=== PATIENT | male | born 1985 | race Caucasian/White ===

== ENCOUNTER 2017-07-27 17:42 | Observation (INO) | payer OTHER ==
[~2017-07-27] VITALS: Ht 170.2 cm; Wt 93.0 kg
[2017-07-27 17:44] VITALS: BP 157/105; PULSE 92; RESP 18; TEMP 98.2; O2SAT 100
[2017-07-27] MEDS ORDERED: ONE-TAB PO (18:12)
[2017-07-27] MEDS ORDERED: SODIUM CHLOR 0.9% 1000 ML INJ 1,000 ML IV ONE (18:15)
[2017-07-27] MEDS ORDERED: KETOROLAC TROMETHAMINE 30 MG/ML (IVP) VIAL IV PUSH ONE (18:15)
--- NOTE | 2017-07-27 18:58 | RADRPT ---
EXAM DATE: 07/27/2017 6:55 PM EDT AGE/SEX: 31 years / Male INDICATIONS: General weakness. CLINICAL DATA: This is the patient's initial encounter. Patient reports that signs and symptoms have been present for 1 day and indicates a pain score of 0/10. MEDICAL/SURGICAL HISTORY: None. None. RADIATION DOSE: 50.69 CTDI (mGy) COMPARISON: No prior [place] exams available for comparison. TECHNIQUE: CT of the head without contrast. Using automated exposure control and adjustment of the mA and/or kV according to patient size, radiation dose was kept as low as reasonably achievable to ob tain optimal diagnostic quality images. FINDINGS: Cerebrum: The ventricles are normal for age. No evidence of midline shift, mass lesion, hemorrhage or acute infarction. No extraaxial fluid collections are seen. Posterior Fossa: The cerebellum and brainstem are intact. The 4th ventricle is midline. The cerebe llopontine angle is unremarkable. Extracranial: The visualized portion of the orbits is intact. Skull: The calvaria is intact. No evidence of skull fracture. CONCLUSION: 1. Negative CT Head non contrast. 2. No evidence of acute infarct, hemorrhage, mass or edema. Electronically signed by: Bry Matthew MD 07/27/2017 6:57 PM EDT
--- NOTE | 2017-07-27 19:03 | PD ---
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 He says that he felt ill about a week ago with some nausea and fatigue. He did not vomit. He did not have any fevers, but felt warm. He says about 4 days ago, he started to have a lot of muscle pains. He says he feels like he has been working out at the gym, but he has not been. 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 He denies numbness or tingling. He has never had this before. Severity is mild to moderate. [facility] Past Medical History Asthma: Yes Social History Alcohol Use: Yes Tobacco Use: No Substance Use: No Allergies-Medications (Allergen,Severity, Reaction): Coded Allergies: No Known Allergies (Unverified , 07/27/17) Reported Meds & Prescriptions Reported Meds & Active Scripts Active Reported One-A-Day Essential (Multivitamin) 1 Each Tablet 1 Tab PO DAILY Review of Systems Except as stated in HPI: all other systems reviewed are Neg General / Constitutional: No: Fever, Chills HENT: No: Headaches, Lightheadedness Cardiovascular: No: Chest Pain or Discomfort Respiratory: No: Shortness of Breath Gastrointestinal: No: Nausea, Vomiting Musculoskeletal: Positive: Myalgias Skin: No Rash, No Change in Pigmentation Neurologic: Positive: Weakness Physical Exam Narrative GENERAL: Awake and alert, no acute distress. SKIN: Focused skin assessment warm/dry. No wounds or signs of infection. HEAD: Atraumatic. Normocephalic. EYES: Pupils equal and round. No scleral icterus. Extra ocular movements intact. ENT: Mucous membranes pink and moist. NECK: Trachea midline. No JVD. CARDIOVASCULAR: Regular rate and rhythm. No murmur appreciated. RESPIRATORY: No accessory muscle use. Clear to auscultation. Breath sounds equal bilaterally. GASTROINTESTINAL: Abdomen soft, non-tender, nondistended. MUSCULOSKELETAL: No obvious deformities. No clubbing. No cyanosis. No edema. NEUROLOGICAL: Awake and alert. No obvious cranial nerve deficits. Decreased electrical appliance repairer strength bilaterally. Normal strength bilaterally in the lower extremities. Normal speech. Pulses intact. PSYCHIATRIC: Appropriate mood and affect; insight and judgment normal. Data Data Last Documented VS Vital Signs Date Time Temp Pulse Resp B/P (MAP) Pulse Ox O2 Delivery O2 Flow Rate FiO2 07/27/17 19:48 20 07/27/17 19:26 70 135/81 (99) 98 Room Air 07/27/17 17:44 98.2 Orders Orders Iv Access Insert/Monitor (07/27/17 18:04) Complete Blood Count With Diff (07/27/17 18:04) Comprehensive Metabolic Panel (07/27/17 18:04) Troponin I (07/27/17 18:04) Creatine Kinase (Cpk) (07/27/17 18:04) Electrocardiogram (07/27/17 ) Westergren Sedimentation Rate (07/27/17 18:04) Urinalysis - C+S If Indicated (07/27/17 18:04) Ct Brain W/O Iv Contrast(Rout) (07/27/17 ) Ct Cerv Spine W/O Contrast (07/27/17 ) Sodium Chlor 0.9% 1000 Ml Inj (Ns 1000 M (07/27/17 18:15) Ketorolac Inj (Toradol Inj) (07/27/17 18:15) Mri Brain W&W/O Contrast (07/27/17 ) Mri C Spine W&W/O Contrast (07/27/17 ) Mri T Spine W & W/O Contrast (07/27/17 ) Mri L Spine W&W/O Contrast (07/27/17 ) Thyroid Stimulating Hormone (07/27/17 20:42) Vitamin B12 (07/27/17 20:42) Act Partial Throm Time (Ptt) (07/27/17 20:42) Prothrombin Time / Inr (Pt) (07/27/17 20:42) Chest, Single Ap (07/27/17 ) Thyroxine (T4) (07/27/17 20:42) Place In Observation (07/27/17 ) Vital Signs (Adult) Q4H (07/27/17 21:13) Activity Oob With Assistance (07/27/17 21:13) Sodium Chlor 0.9% 1000 Ml Inj (Ns 1000 M (07/27/17 22:00) Sodium Chloride 0.9% Flush (Ns Flush) (07/27/17 21:15) Sodium Chloride 0.9% Flush (Ns Flush) (07/28/17 09:00) Comprehensive Metabolic Panel (07/28/17 06:00) Complete Blood Count With Diff (07/28/17 06:00) Pt Request For Service (07/27/17 21:13) Ot Request For Service (07/27/17 21:13) Scd Bilateral/Knee High SUKI.BID (07/27/17 21:13) Santana Bilateral/Knee High SUKI.QSHIFT (07/27/17 21:13) Acetaminophen (Tylenol) (07/27/17 21:15) Docusate Sodium-Senna (Emily-Colace) (07/28/17 09:00) Magnesium Hydroxide Liq (Milk Of Magnesi (07/27/17 21:15) Sennosides (Senokot) (07/27/17 21:15) Bisacodyl Supp (Dulcolax Supp) (07/27/17 21:15) Lactulose Liq (Lactulose Liq) (07/27/17 21:15) Consult Neurology (07/27/17 ) Sodium Chlor 0.9% 1000 Ml Inj (Ns 1000 M (07/27/17 21:30) Physician Name Changes (07/27/17 ) Admit Order (Ed Use Only) (07/27/17 ) Multimedia Artist / Telemetry SUKI.Q8H (07/27/17 21:47) Diet Heart Healthy (07/28/17 Breakfast) Activity Oob With Assistance (07/27/17 21:47) Notify Dr: Other (07/27/17 21:47) C-Reactive Protein (Crp) (07/28/17 06:00) Magnesium (Mg) (07/28/17 06:00) Labs Laboratory Tests Test 07/27/17 18:42 07/27/17 18:55 07/27/17 21:04 White Blood Count 7.7 TH/MM3 Red Blood Count 4.98 MIL/MM3 Hemoglobin 14.4 GM/DL Hematocrit 40.7 % Mean Corpuscular Volume 81.7 FL Mean Corpuscular Hemoglobin 28.9 PG Mean Corpuscular Hemoglobin Concent 35.3 % Red Cell Distribution Width 12.9 % Platelet Count 318 TH/MM3 Mean Platelet Volume 6.8 FL Neutrophils (%) (Auto) 64.3 % Lymphocytes (%) (Auto) 23.9 % Monocytes (%) (Auto) 7.6 % Eosinophils (%) (Auto) 3.7 % Basophils (%) (Auto) 0.5 % Neutrophils # (Auto) 4.9 TH/MM3 Lymphocytes # (Auto) 1.8 TH/MM3 Monocytes # (Auto) 0.6 TH/MM3 Eosinophils # (Auto) 0.3 TH/MM3 Basophils # (Auto) 0.0 TH/MM3 CBC Comment DIFF FINAL Differential Comment Erythrocyte Sedimentation Rate 31 mm/hr Blood Urea Nitrogen 24 MG/DL Creatinine 1.13 MG/DL Random Glucose 78 MG/DL Total Protein 7.6 GM/DL Albumin 3.9 GM/DL Calcium Level 8.8 MG/DL Alkaline Phosphatase 78 U/L Aspartate Amino Transf (AST/SGOT) 30 U/L Alanine Aminotransferase (ALT/SGPT) 40 U/L Total Bilirubin 0.3 MG/DL Sodium Level 139 MEQ/L Potassium Level 3.9 MEQ/L Chloride Level 106 MEQ/L Carbon Dioxide Level 22.9 MEQ/L Anion Gap 10 MEQ/L Estimat Glomerular Filtration Rate 75 ML/MIN Total Creatine Kinase 235 U/L Troponin I LESS THAN 0.02 NG/ML Urine Color LIGHT-YELLOW Urine Turbidity CLEAR Urine pH 5.5 Urine Specific [place] 1.009 Urine Protein NEG mg/dL Urine Glucose (UA) NEG mg/dL Urine Ketones 10 mg/dL Urine Occult Blood NEG Urine Nitrite NEG Urine Bilirubin NEG Urine Urobilinogen LESS THAN 2.0 MG/DL Urine Leukocyte Esterase NEG Urine WBC LESS THAN 1 /hpf Microscopic Urinalysis Comment CULT NOT INDICATED Prothrombin Time 10.5 SEC Prothromb Time International Ratio 1.0 RATIO Activated Partial Thromboplast Time 30.8 SEC Vitamin B12 Level 458 PG/ML Thyroxine (T4) 8.2 MCG/DL Thyroid Stimulating Hormone 3rd Gen 1.100 uIU/ML [facility] Medical Decision Making Medical Screen Exam Complete: Yes Emergency Medical Condition: Yes Differential Diagnosis Electrolyte abnormality versus rhabdomyolysis versus dehydration versus neurologic abnormality Narrative Course Patient is a 31-year-old male who comes in complaining of muscle aches and weakness of his hands. Exam shows decreased electrical appliance repairer strength, no other neurologic abnormalities. IV established, labs sent. CT head and C-spine ordered. Patient given IV fluids. Signed out to Dr. Duong to follow up testing and disposition the patient. Pauline Mccray MD July 27, 2017 19:03
[2017-07-27 19:09] LABS: AUTOMATED NEUTROPHIL # 4.9 TH/MM3 (1.8-7.7); BASOPHIL % 0.5 % (0.0-2.0); EOSINOPHIL # 0.3 TH/MM3 (0-0.4); EOSINOPHIL % 3.7 % (0.0-4.0); HEMATOCRIT 40.7 % (39.0-51.0); HEMOGLOBIN 14.4 GM/DL (13.0-17.0); LYMPH % 23.9 % (9.0-44.0); LYMPHOCYTE # 1.8 TH/MM3 (1.0-4.8); MEAN CELL VOLUME 81.7 FL (80.0-100.0); MEAN CORPUSCULAR HEMOGLOBIN 28.9 PG (27.0-34.0); MEAN CORPUSCULAR HGB CONC 35.3 % (32.0-36.0); MEAN PLATELET VOLUME 6.8 FL (7.0-11.0); MONO % 7.6 % (0.0-8.0); MONOCYTE # 0.6 TH/MM3 (0-0.9); NEUT % 64.3 % (16.0-70.0); PLATELET COUNT 318 TH/MM3 (150-450); RED BLOOD COUNT 4.98 MIL/MM3 (4.50-5.90); RED CELL DISTRIBUTION WIDTH 12.9 % (11.6-17.2); WHITE BLOOD COUNT 7.7 TH/MM3 (4.0-11.0)
[2017-07-27 19:12] LABS: BILIRUBIN, URINE NEG (NEG); BLOOD, URINE NEG (NEG); GLUCOSE,URINE NEG (NEG); KETONE, URINE 10 mg/dL (NEG); NITRITE,URINE NEG (NEG); PH, URINE 5.5 (5.0-8.5); URINE COLOR LIGHT-YELLOW (YELLW/STRAW); URINE LEUKOCYTE ESTERASE NEG (NEG)
[2017-07-27 19:26] VITALS: BP 135/81; PULSE 70; RESP 18; O2SAT 98
--- NOTE | 2017-07-27 19:27 | PD ---
Physical Exam Date Seen by Provider: July 27, 2017 Time Seen by Provider: 19:26 Narrative accepted in transfer of care from Dr Mccrya GENERAL: Well-developed well-nourished male no acute distress no respiratory distress; GCS 15 SKIN: Warm and dry. HEAD: Atraumatic. Normocephalic. EYES: Pupils equal and round. No scleral icterus. No injection or drainage. ENT: No nasal bleeding or discharge. Mucous membranes pink and moist. NECK: Trachea midline. No JVD. CARDIOVASCULAR: Regular rate and rhythm. RESPIRATORY: No accessory muscle use. Clear to auscultation. Breath sounds equal bilaterally. GASTROINTESTINAL: Abdomen soft, non-tender, nondistended. Hepatic and splenic margins not palpable. MUSCULOSKELETAL: Extremities without clubbing, cyanosis, or edema. No obvious deformities. NEUROLOGICAL: Awake and alert. No obvious cranial nerve deficits. Motor grossly within normal limits. Five out of 5 muscle strength in the arms and legs. No pronator drift. No limb ataxia. DTRs 2+ and equal no clonus. Normal speech. PSYCHIATRIC: Appropriate mood and affect; insight and judgment normal. Data Data Last Documented VS Vital Signs Date Time Temp Pulse Resp B/P (MAP) Pulse Ox O2 Delivery O2 Flow Rate FiO2 07/27/17 19:48 20 07/27/17 19:26 70 135/81 (99) 98 Room Air 07/27/17 17:44 98.2 Orders Orders Iv Access Insert/Monitor (07/27/17 18:04) Complete Blood Count With Diff (07/27/17 18:04) Comprehensive Metabolic Panel (07/27/17 18:04) Troponin I (07/27/17 18:04) Creatine Kinase (Cpk) (07/27/17 18:04) Electrocardiogram (07/27/17 ) Westergren Sedimentation Rate (07/27/17 18:04) Urinalysis - C+S If Indicated (07/27/17 18:04) Ct Brain W/O Iv Contrast(Rout) (07/27/17 ) Ct Cerv Spine W/O Contrast (07/27/17 ) Sodium Chlor 0.9% 1000 Ml Inj (Ns 1000 M (07/27/17 18:15) Ketorolac Inj (Toradol Inj) (07/27/17 18:15) Mri Brain W&W/O Contrast (07/27/17 ) Mri C Spine W&W/O Contrast (07/27/17 ) Mri T Spine W & W/O Contrast (07/27/17 ) Mri L Spine W&W/O Contrast (07/27/17 ) Thyroid Stimulating Hormone (07/27/17 20:42) Vitamin B12 (07/27/17 20:42) Act Partial Throm Time (Ptt) (07/27/17 20:42) Prothrombin Time / Inr (Pt) (07/27/17 20:42) Chest, Single Ap (07/27/17 ) Thyroxine (T4) (07/27/17 20:42) Place In Observation (07/27/17 ) Vital Signs (Adult) Q4H (07/27/17 21:13) Activity Oob With Assistance (07/27/17 21:13) Sodium Chlor 0.9% 1000 Ml Inj (Ns 1000 M (07/27/17 22:00) Sodium Chloride 0.9% Flush (Ns Flush) (07/27/17 21:15) Sodium Chloride 0.9% Flush (Ns Flush) (07/28/17 09:00) Comprehensive Metabolic Panel (07/28/17 06:00) Complete Blood Count With Diff (07/28/17 06:00) Pt Request For Service (07/27/17 21:13) Ot Request For Service (07/27/17 21:13) Scd Bilateral/Knee High SUKI.BID (07/27/17 21:13) Santana Bilateral/Knee High SUKI.QSHIFT (07/27/17 21:13) Acetaminophen (Tylenol) (07/27/17 21:15) Docusate Sodium-Senna (Emily-Colace) (07/28/17 09:00) Magnesium Hydroxide Liq (Milk Of Magnesi (07/27/17 21:15) Sennosides (Senokot) (07/27/17 21:15) Bisacodyl Supp (Dulcolax Supp) (07/27/17 21:15) Lactulose Liq (Lactulose Liq) (07/27/17 21:15) Consult Neurology (07/27/17 ) Sodium Chlor 0.9% 1000 Ml Inj (Ns 1000 M (07/27/17 21:30) Physician Name Changes (07/27/17 ) Admit Order (Ed Use Only) (07/27/17 ) Survey Supervisor / Telemetry SUKI.Q8H (07/27/17 21:47) Diet Heart Healthy (07/28/17 Breakfast) Activity Oob With Assistance (07/27/17 21:47) Notify Dr: Other (07/27/17 21:47) C-Reactive Protein (Crp) (07/28/17 06:00) Magnesium (Mg) (07/28/17 06:00) Labs Laboratory Tests Test 07/27/17 18:42 07/27/17 18:55 07/27/17 21:04 White Blood Count 7.7 TH/MM3 Red Blood Count 4.98 MIL/MM3 Hemoglobin 14.4 GM/DL Hematocrit 40.7 % Mean Corpuscular Volume 81.7 FL Mean Corpuscular Hemoglobin 28.9 PG Mean Corpuscular Hemoglobin Concent 35.3 % Red Cell Distribution Width 12.9 % Platelet Count 318 TH/MM3 Mean Platelet Volume 6.8 FL Neutrophils (%) (Auto) 64.3 % Lymphocytes (%) (Auto) 23.9 % Monocytes (%) (Auto) 7.6 % Eosinophils (%) (Auto) 3.7 % Basophils (%) (Auto) 0.5 % Neutrophils # (Auto) 4.9 TH/MM3 Lymphocytes # (Auto) 1.8 TH/MM3 Monocytes # (Auto) 0.6 TH/MM3 Eosinophils # (Auto) 0.3 TH/MM3 Basophils # (Auto) 0.0 TH/MM3 CBC Comment DIFF FINAL Differential Comment Erythrocyte Sedimentation Rate 31 mm/hr Blood Urea Nitrogen 24 MG/DL Creatinine 1.13 MG/DL Random Glucose 78 MG/DL Total Protein 7.6 GM/DL Albumin 3.9 GM/DL Calcium Level 8.8 MG/DL Alkaline Phosphatase 78 U/L Aspartate Amino Transf (AST/SGOT) 30 U/L Alanine Aminotransferase (ALT/SGPT) 40 U/L Total Bilirubin 0.3 MG/DL Sodium Level 139 MEQ/L Potassium Level 3.9 MEQ/L Chloride Level 106 MEQ/L Carbon Dioxide Level 22.9 MEQ/L Anion Gap 10 MEQ/L Estimat Glomerular Filtration Rate 75 ML/MIN Total Creatine Kinase 235 U/L Troponin I LESS THAN 0.02 NG/ML Urine Color LIGHT-YELLOW Urine Turbidity CLEAR Urine pH 5.5 Urine Specific [place] 1.009 Urine Protein NEG mg/dL Urine Glucose (UA) NEG mg/dL Urine Ketones 10 mg/dL Urine Occult Blood NEG Urine Nitrite NEG Urine Bilirubin NEG Urine Urobilinogen LESS THAN 2.0 MG/DL Urine Leukocyte Esterase NEG Urine WBC LESS THAN 1 /hpf Microscopic Urinalysis Comment CULT NOT INDICATED Prothrombin Time 10.5 SEC Prothromb Time International Ratio 1.0 RATIO Activated Partial Thromboplast Time 30.8 SEC Vitamin B12 Level 458 PG/ML Thyroxine (T4) 8.2 MCG/DL Thyroid Stimulating Hormone 3rd Gen 1.100 uIU/ML [facility] Medical Record Reviewed: Yes Supervised Visit with BRI: No Interpretation(s) CBC & BMP Diagram 07/27/17 18:42 Total Protein 7.6, Albumin 3.9, Calcium Level 8.8, Alkaline Phosphatase 78, Aspartate Amino Transf (AST/SGOT) 30, Alanine Aminotransferase (ALT/SGPT) 40, Total Bilirubin 0.3 Vital Signs Date Time Temp Pulse Resp B/P (MAP) Pulse Ox O2 Delivery O2 Flow Rate FiO2 07/27/17 19:26 70 18 135/81 (99) 98 Room Air 07/27/17 17:44 98.2 92 18 157/105 (122) 100 Sed rate: 31, mildly elevated EKG: normal sinus rhythm rate [address] elevation injury pattern or ectopy noted, normal axis and intervals Last Impressions Head CT 07/27/17 0000 Signed Impressions: CONCLUSION: 1. Negative CT Head non contrast. 2. No evidence of acute infarct, hemorrhage, mass or edema. Cervical Spine CT 07/27/17 0000 Signed Impressions: CONCLUSION: 1. Negative CT Cervical Spine non contrast. 2. No evidence of disc herniation, spinal stenosis or foraminal encroachment. UA: wnl CK: 235, not elevated; troponin I less than 0.02, not elevated Differential Diagnosis accepted in transfer of care from Dr Mccray; please refer to her dictation Narrative Course accepted in transfer of care from Dr Mccray; follow up labs, CT CT brain noncontrast CT cervical spine noncontrast reveals no acute process sed rate is mildly elevated at 31 otherwise metabolic panel CBC with automated differential and urinalysis values normal EKG is sinus rhythm with no acute injury pattern or ectopy or ST elevation normal axis and intervals. Patient's case discussed with on-call neurologist who recommends proceeding with MRI of the brain cervical spine thoracic spine lumbar spine studies to be performed with and without contrast as well as an chest x-ray TSH T4 B12 and coags may require lumbar puncture. Call placed to medicine service for admission Physician Communication Physician Communication discussed with Dr Martino will see in consultation; [facility] ---ad[facility] to [facility]--discussed with DR Purvis Diagnosis Primary Impression: Weakness generalized Admitting Information Admitting Physician Requests: Observation Ruchi Duong MD July 27, 2017 19:27
[2017-07-27 19:28] LABS: ALT (GPT) 40 U/L (12-78)
[2017-07-27 19:30] LABS: ALBUMIN 3.9 GM/DL (3.4-5.0); AST (GOT) 30 U/L (15-37); BICARBONATE 22.9 MEQ/L (21.0-32.0); BLOOD UREA NITROGEN 24 MG/DL (7-18); CALCIUM 8.8 MG/DL (8.5-10.1); CHLORIDE 106 MEQ/L (98-107); CREATININE 1.13 MG/DL (0.60-1.30); GLOMERULAR FILTRATION RATE 75 ML/MIN (>89); GLUCOSE,RANDOM 78 MG/DL (74-106); SODIUM (NA) 139 MEQ/L (136-145)
[2017-07-27 19:31] LABS: ALKALINE PHOSPHATASE 78 U/L (45-117); TOTAL BILIRUBIN ADULT 0.3 MG/DL (0.2-1.0); TOTAL PROTEIN 7.6 GM/DL (6.4-8.2); TROPONIN I LESS THAN 0.02 NG/ML (0.02-0.05)
--- NOTE | 2017-07-27 19:31 | RADRPT ---
EXAM DATE: 07/27/2017 6:51 PM EDT AGE/SEX: 31 years / Male INDICATIONS: Neck pain. CLINICAL DATA: This is the patient's initial encounter. Patient reports that signs and symptoms have been present for 1 day and indicates a pain score of 7/10. MEDICAL/SURGICAL HISTORY: None. None. RADIATION DOSE: 42.99 CTDI (mGy) COMPARISON: No prior [place] exams available for comparison. TECHNIQUE: Contiguous axial images were obtained using helical multirow detector technique. The vol umetric data was post-processed with multiplanar reconstruction in oblique axial, sagittal, and coron al planes. Using automated exposure control and adjustment of the mA and/or kV according to patient s ize, radiation dose was kept as low as reasonably achievable to obtain optimal diagnostic quality ivon ges. FINDINGS: ALIGNMENT: Vertebral bodies are satisfactorily aligned without evidence of listhesis. FACET AND OSSEOUS STRUCTURES: Vertebral body height is well-maintained. There is no evidence of acut e fracture, traumatic listhesis or destructive changes. There is no significant facet arthropathy. INTERVERTEBRAL DISC SPACES: Intervertebral disc are well-maintained without evidence of significant degenerative change. There is no evidence of disc herniation. NEUROLOGIC STRUCTURES: The spinal cord and nerve roots appear normal. There is no evidence of fer nora. CONCLUSION: 1. Negative CT Cervical Spine non contrast. 2. No evidence of disc herniation, spinal stenosis or foraminal encroachment. Electronically signed by: Bry Matthew MD 07/27/2017 7:30 PM EDT
--- NOTE | 2017-07-27 21:13 | RADRPT ---
EXAM DATE: 07/27/2017 9:09 PM EDT AGE/SEX: 31 years / Male INDICATIONS: Chest pain. Weakness. CLINICAL DATA: This is the patient's initial encounter. Patient reports that signs and symptoms have been present for 1 day and indicates a pain score of 7/10. MEDICAL/SURGICAL HISTORY: None. None. COMPARISON: No prior [place] exams available for comparison. FINDINGS: A single AP view of the chest demonstrates the lungs to be symmetrically aerated without evidence of mass, infiltrate or effusion. The cardiomediastinal contours are unremarkable. Osseous structures a re intact. CONCLUSION: Negative examination. Electronically signed by: Bry Matthew MD 07/27/2017 9:11 PM EDT
[2017-07-27] MEDS ORDERED: LACTULOSE SYRUP 20 GM/30 ML CUP PO PRN (21:15)
[2017-07-27] MEDS ORDERED: BISACODYL 10 MG SUPP RECTAL PRN (21:15)
[2017-07-27] MEDS ORDERED: MAGNESIUM HYDROXIDE SUSP 30 ML CUP PO PRN (21:15)
[2017-07-27] MEDS ORDERED: SODIUM CHLORIDE 0.9% FLUSH 10 ML FLUSH IV FLUSH PRN (21:15)
[2017-07-27] MEDS ORDERED: SENNOSIDES 8.6 MG TAB PO PRN (21:15)
[2017-07-27] MEDS ORDERED: ACETAMINOPHEN 325 MG TAB PO PRN (21:15)
--- NOTE | 2017-07-27 21:26 | EKG ---
Date Performed: 07/27/2017 Time Performed: 18:54:36 PTAGE: 31 years EKG: Sinus rhythm NORMAL ECG NO PREVIOUS TRACING DOCTOR: Charli Ruiz Interpretating Date/Time 07/27/2017 21:24:02
[2017-07-27 21:33] LABS: PROTHROMBIN TIME - PATIENT 10.5 SEC (9.8-11.6)
[2017-07-27 21:40] LABS: THYROXINE (T4) 8.2 MCG/DL (4.5-12.1)
[2017-07-27] MEDS: SODIUM CHLOR 0.9% 1000 ML INJ 1,000 ML IV SCH ×2 (22:00→23:38)
--- NOTE | 2017-07-27 22:08 | HHI.HP ---
HPI Service [facility] Hospitalists Primary Care Physician Unknown Admission Diagnosis Generalized weakness Chief Complaint: generalized weakness poor support services coordinator strength progressed over last few days Travel History International Travel<30 Days: No Contact w/Intl Traveler <30 Da: No Traveled to Known Affected Are: No History of Present Illness Patient is a 31-year-old male who comes in complaining of weakness and decreased support services coordinator strength. He says that he felt ill about a week ago with some nausea and fatigue. He did not vomit. He did not have any fevers, but felt warm. He says about 4 days ago, he started to have a lot of muscle pains. He says he feels like he has been working out at the gym, but he has not been. He says that last night, he noticed that his support services coordinator strength was weak and has been unable to hold things. He denies numbness or tingling. He has never had this before. Severity is mild to moderate. In er work up was unremarkable except for mild elevated sed rate ,neurology was notified and recommend admit for full neurologic work up. Review of Systems Musculoskeletal: COMPLAINS OF: Muscle aches Other weakness Past Family Social History Past Medical History asthma Past Surgical History none Reported Medications mvi Allergies: Coded Allergies: No Known Allergies (Unverified , 07/27/17) Social History occ etoh non smoker Physical Exam Vital Signs Vital Signs Date Time Temp Pulse Resp B/P (MAP) Pulse Ox O2 Delivery O2 Flow Rate FiO2 07/27/17 19:48 20 07/27/17 19:26 70 18 135/81 (99) 98 Room Air 07/27/17 17:44 98.2 92 18 157/105 (122) 100 Physical Exam GENERAL: This is a well-nourished, well-developed patient, in no apparent distress. SKIN: No rashes, ecchymoses or lesions. Cool and dry. HEAD: Atraumatic. Normocephalic. No temporal or scalp tenderness. EYES: Pupils equal round and reactive. Extraocular motions intact. No scleral icterus. No injection or drainage. ENT: Nose without bleeding, purulent drainage or septal hematoma. Throat without erythema, tonsillar hypertrophy or exudate. Uvula midline. Airway patent. NECK: Trachea midline. No JVD or lymphadenopathy. Supple, nontender, no meningeal signs. CARDIOVASCULAR: Regular rate and rhythm without murmurs, gallops, or rubs. RESPIRATORY: Clear to auscultation. Breath sounds equal bilaterally. No wheezes , rales, or rhonchi. GASTROINTESTINAL: Abdomen soft, non-tender, nondistended. No hepato-splenomegaly , or palpable masses. No guarding. MUSCULOSKELETAL: Extremities without clubbing, cyanosis, or edema. No joint tenderness, effusion, or edema noted. No calf tenderness. Negative Homans sign bilaterally. NEUROLOGICAL: Awake and alert. Cranial nerves II through XII intact. Motor and sensory grossly within normal limits. 2 out of 5 muscle strength in hand strength. Normal speech. Laboratory Laboratory Tests Test 07/27/17 18:42 07/27/17 18:55 07/27/17 21:04 White Blood Count 7.7 Red Blood Count 4.98 Hemoglobin 14.4 Hematocrit 40.7 Mean Corpuscular Volume 81.7 Mean Corpuscular Hemoglobin 28.9 Mean Corpuscular Hemoglobin Concent 35.3 Red Cell Distribution Width 12.9 Platelet Count 318 Mean Platelet Volume 6.8 Neutrophils (%) (Auto) 64.3 Lymphocytes (%) (Auto) 23.9 Monocytes (%) (Auto) 7.6 Eosinophils (%) (Auto) 3.7 Basophils (%) (Auto) 0.5 Neutrophils # (Auto) 4.9 Lymphocytes # (Auto) 1.8 Monocytes # (Auto) 0.6 Eosinophils # (Auto) 0.3 Basophils # (Auto) 0.0 CBC Comment DIFF FINAL Differential Comment Erythrocyte Sedimentation Rate 31 Blood Urea Nitrogen 24 Creatinine 1.13 Random Glucose 78 Total Protein 7.6 Albumin 3.9 Calcium Level 8.8 Alkaline Phosphatase 78 Aspartate Amino Transf (AST/SGOT) 30 Alanine Aminotransferase (ALT/SGPT) 40 Total Bilirubin 0.3 Sodium Level 139 Potassium Level 3.9 Chloride Level 106 Carbon Dioxide Level 22.9 Anion Gap 10 Estimat Glomerular Filtration Rate 75 Total Creatine Kinase 235 Troponin I LESS THAN 0.02 Urine Color LIGHT-YELLOW Urine Turbidity CLEAR Urine pH 5.5 Urine Specific [place] 1.009 Urine Protein NEG Urine Glucose (UA) NEG Urine Ketones 10 Urine Occult Blood NEG Urine Nitrite NEG Urine Bilirubin NEG Urine Urobilinogen LESS THAN 2.0 Urine Leukocyte Esterase NEG Urine WBC LESS THAN 1 Microscopic Urinalysis Comment CULT NOT INDICATED Prothrombin Time 10.5 Prothromb Time International Ratio 1.0 Activated Partial Thromboplast Time 30.8 Thyroxine (T4) 8.2 Result Diagram: 07/27/17 1842 07/27/17 1842 Imaging Last [address] 07/27/17 0000 Signed Impressions: CONCLUSION: 1. Negative CT Head non contrast. 2. No evidence of acute infarct, hemorrhage, mass or edema. Chest X-Ray 07/27/17 0000 Signed Impressions: CONCLUSION: Negative examination. Cervical Spine CT 07/27/17 0000 Signed Impressions: CONCLUSION: 1. Negative CT Cervical Spine non contrast. 2. No evidence of disc herniation, spinal stenosis or foraminal encroachment. Caprini VTE Risk Assessment Caprini VTE Risk Assessment: No/Low Risk (score <= 1) Caprini Risk Assessment Model Point Value = 1 Point Value = 2 Point Value = 3 Point Value = 5 Age 41-60 Minor surgery BMI > 25 kg/m2 Swollen legs Varicose veins or History of unexplained or recurrent spontaneous Oral contraceptives or hormone replacement Sepsis (< 1 month) Serious lung disease, including pneumonia (< 1 month) Abnormal pulmonary function Acute myocardial infarction Congestive heart failure (< 1 month) History of inflammatory bowel disease Medical patient at bed rest Age 61-74 Arthroscopic surgery Major open surgery (> 45 min) Laparoscopic surgery (> 45 min) Malignancy Confined to bed (> 72 hours) Immobilizing plaster cast Central venous access Age >= 75 History of VTE Family history of VTE Factor V Leiden Prothrombin [id number] Lupus anticoagulant Anticardiolipin antibodies Elevated serum homocysteine Heparin-induced thrombocytopenia Other congenital or acquired thrombophilia Stroke (< 1 month) Elective arthroplasty Hip, pelvis, or leg fracture Acute spinal cord injury (< 1 month) Prophylaxis Regimen Total Risk Factor Score Risk Level Prophylaxis Regimen 0-1 Low Early ambulation 2 Moderate Order ONE of the following: *Sequential Compression Device (SCD) *Heparin 5000 units SQ BID 3-4 Higher Order ONE of the following medications: *Heparin 5000 units SQ TID *Enoxaparin/Lovenox 40 mg SQ daily (WT < 150 kg, CrCl > 30 mL/min) *Enoxaparin/Lovenox 30 mg SQ daily (WT < 150 kg, CrCl > 10-29 mL/min) *Enoxaparin/Lovenox 30 mg SQ BID (WT < 150 kg, CrCl > 30 mL/min) AND/OR *Sequential Compression Device (SCD) 5 or more Highest Order ONE of the following medications: *Heparin 5000 units SQ TID (Preferred with Epidurals) *Enoxaparin/Lovenox 40 mg SQ daily (WT < 150 kg, CrCl > 30 mL/min) *Enoxaparin/Lovenox 30 mg SQ daily (WT < 150 kg, CrCl > 10-29 mL/min) *Enoxaparin/Lovenox 30 mg SQ BID (WT < 150 kg, CrCl > 30 mL/min) AND *Sequential Compression Device (SCD) Assessment and Plan Problem List: (1) Muscle ache ICD Codes: M79.1 - Myalgia Status: Acute Plan: as per neurology -mri ,lab work plan as per orders pending neurology evaluation (2) Weakness generalized ICD Codes: R53.1 - Weakness Status: Acute Plan: as above Assessment and Plan further plan as case develops Code Status full Discussed Condition With patient Thanh Mederos MD July 27, 2017 22:08
[2017-07-27] MEDS ORDERED: GADODIAMIDE PF 287 MG/ML 20 ML VIAL (for RAD MRI) IVCONTRAST ONE (22:10)
--- NOTE | 2017-07-27 22:18 | RADRPT ---
EXAM DATE: 07/27/2017 10:13 PM EDT AGE/SEX: 31 years / Male INDICATIONS: . Bilateral upper and lower extremity weakness. CLINICAL DATA: This is the patient's initial encounter. Patient reports that signs and symptoms have been present for 3 days and indicates a pain score of 0/10. MEDICAL/SURGICAL HISTORY: None. Tonsillectomy. COMPARISON: No prior [facility] exams available for comparison. TECHNIQUE: Multiplanar, multisequence MRI of the thoracic spine was performed without and with 18cc ml Omniscan (gadodiamide) contrast as a single exam dose. FINDINGS: ALIGNMENT: Vertebral bodies are satisfactorily aligned without evidence of listhesis. FACET AND OSSEOUS STRUCTURES: Vertebral body height is well-maintained. There is no evidence of acut e fracture, bone marrow edema or destructive changes. There is no significant facet arthropathy. INTERVERTEBRAL DISC SPACES: Intervertebral disc are well-maintained without evidence of significant degenerative change. There is no evidence of disc herniation. NEUROLOGIC STRUCTURES: The spinal cord and nerve roots appear normal. There is no evidence of fer nora. CONCLUSION: 1. No acute bony abnormality, disc herniation, soft tissue mass or spinal cord abnormality. 2. No evidence of enhancing epidural, intradural or intramedullary lesions. Electronically signed by: Bry Matthew MD 07/27/2017 10:17 PM EDT
--- NOTE | 2017-07-27 22:27 | RADRPT ---
EXAM DATE: 07/27/2017 10:21 PM EDT AGE/SEX: 31 years / Male INDICATIONS: . Bilateral upper and lower extremity weakness. CLINICAL DATA: This is the patient's initial encounter. Patient reports that signs and symptoms have been present for 3 days and indicates a pain score of 0/10. MEDICAL/SURGICAL HISTORY: None. Tonsillectomy. COMPARISON: No prior [facility] exams available for comparison. TECHNIQUE: Multiplanar, multisequence MRI examination of the cervical spine was performed without an d with 18 ml Omniscan (gadodiamide) contrast as a single exam dose. FINDINGS: ALIGNMENT: Vertebral bodies are satisfactorily aligned without evidence of listhesis. FACET AND OSSEOUS STRUCTURES: Vertebral body height is well-maintained. There is no evidence of acut e fracture, bone marrow edema or destructive changes. There is no significant facet arthropathy. INTERVERTEBRAL DISC SPACES: Intervertebral disc are well-maintained without evidence of significant degenerative change. There is no evidence of disc herniation. NEUROLOGIC STRUCTURES: The spinal cord and nerve roots appear normal. There is no evidence of fer nora. No evidence of epidural, intradural or intramedullary lesions or abnormal enhancement. CONCLUSION: 1. Negative MR Cervical Spine with and without contrast. 2. No evidence of acute abnormality or enhancing lesions. Electronically signed by: Bry Matthew MD 07/27/2017 10:26 PM EDT
--- NOTE | 2017-07-27 22:29 | RADRPT ---
EXAM DATE: 07/27/2017 10:23 PM EDT AGE/SEX: 31 years / Male INDICATIONS: . Bilateral upper and lower extremity weakness. CLINICAL DATA: This is the patient's initial encounter. Patient reports that signs and symptoms have been present for 3 days and indicates a pain score of 0/10. MEDICAL/SURGICAL HISTORY: None. Tonsillectomy. COMPARISON: No prior [facility] exams available for comparison. TECHNIQUE: Multiplanar, multisequence MRI examination of the lumbar spine was performed without and with 18cc ml Omniscan (gadodiamide) contrast as a single exam dose. FINDINGS: ALIGNMENT: Vertebral bodies are satisfactorily aligned without evidence of listhesis. FACET AND OSSEOUS STRUCTURES: Vertebral body height is well-maintained. There is no evidence of acut e fracture, bone marrow edema or destructive changes. There is no significant facet arthropathy. INTERVERTEBRAL DISC SPACES: Intervertebral disc are well-maintained without evidence of significant degenerative change. There is no evidence of disc herniation. NEUROLOGIC STRUCTURES: The spinal cord and nerve roots appear normal. There is no evidence of fer nora. There are no epidural or intradural masses or evidence of abnormal enhancement CONCLUSION: 1. Negative MR Lumbar Spine with and without contrast. 2. No evidence of acute abnormality or abnormal enhancement. Electronically signed by: Bry Matthew MD 07/27/2017 10:27 PM EDT
--- NOTE | 2017-07-27 22:39 | RADRPT ---
EXAM DATE: 07/27/2017 10:34 PM EDT AGE/SEX: 31 years / Male INDICATIONS: . Bilateral upper and lower extremity weakness. CLINICAL DATA: This is the patient's initial encounter. Patient reports that signs and symptoms have been present for 3 days and indicates a pain score of 0/10. MEDICAL/SURGICAL HISTORY: None. Tonsillectomy. COMPARISON: No prior [facility] exams available for comparison. TECHNIQUE: Multiplanar, multisequence examination of the brain was performed without and with 18cc ml Omniscan (gadodiamide) contrast as a single exam dose. FINDINGS: Cerebrum: The ventricles are normal for age. No evidence of midline shift, mass lesion, hemorrhage or acute infarction. No extraaxial fluid collections are seen. The pituitary gland and suprasellar cistern are normal in configuration. White Matter: No significant signal abnormalities are seen in the white matter. Posterior Fossa: The cerebellum and brainstem are intact. The 4th ventricle is midline. The cerebel lopontine angle is unremarkable. The cerebellar tonsils are normal in position. Diffusion Imaging: No focal areas of restricted diffusion are seen. No evidence of acute infarction . Extracranial: The visualized portions of the orbits and paranasal sinuses are unremarkable. Post Contrast: No abnormal areas of parenchymal or dural enhancement. No evidence of blood-brain ba rrier breakdown. CONCLUSION: 1. Negative MR Brain with and without contrast. 2. No evidence of acute infarct, hemorrhage, mass, enhancing lesions or demyelinating process. Electronically signed by: Bry Matthew MD 07/27/2017 10:37 PM EDT
[2017-07-27 22:49] VITALS: BP 134/92; PULSE 88; RESP 20; TEMP 97.4; O2SAT 98
[2017-07-28 04:44] VITALS: BP 114/74; PULSE 82; RESP 20; TEMP 97.8; O2SAT 97
[2017-07-28 06:18] LABS: AUTOMATED NEUTROPHIL # 2.9 TH/MM3 (1.8-7.7); BASOPHIL % 0.7 % (0.0-2.0); EOSINOPHIL # 0.3 TH/MM3 (0-0.4); EOSINOPHIL % 4.8 % (0.0-4.0); HEMATOCRIT 39.8 % (39.0-51.0); HEMOGLOBIN 13.6 GM/DL (13.0-17.0); LYMPH % 31.3 % (9.0-44.0); LYMPHOCYTE # 1.7 TH/MM3 (1.0-4.8); MEAN CELL VOLUME 82.8 FL (80.0-100.0); MEAN CORPUSCULAR HEMOGLOBIN 28.2 PG (27.0-34.0); MEAN CORPUSCULAR HGB CONC 34.1 % (32.0-36.0); MEAN PLATELET VOLUME 6.7 FL (7.0-11.0); MONO % 8.6 % (0.0-8.0); MONOCYTE # 0.5 TH/MM3 (0-0.9); NEUT % 54.6 % (16.0-70.0); PLATELET COUNT 287 TH/MM3 (150-450); RED CELL DISTRIBUTION WIDTH 12.8 % (11.6-17.2); WHITE BLOOD COUNT 5.3 TH/MM3 (4.0-11.0)
[2017-07-28 06:55] LABS: ALBUMIN 3.6 GM/DL (3.4-5.0); AST (GOT) 25 U/L (15-37); BICARBONATE 24.5 MEQ/L (21.0-32.0); BLOOD UREA NITROGEN 20 MG/DL (7-18); CALCIUM 8.2 MG/DL (8.5-10.1); CHLORIDE 109 MEQ/L (98-107); CREATININE 0.84 MG/DL (0.60-1.30); GLOMERULAR FILTRATION RATE 105 ML/MIN (>89); GLUCOSE,RANDOM 77 MG/DL (74-106); MAGNESIUM 2.2 MG/DL (1.5-2.5); SODIUM (NA) 142 MEQ/L (136-145)
[2017-07-28 06:56] LABS: ALT (GPT) 33 U/L (12-78)
[2017-07-28 06:58] LABS: ALKALINE PHOSPHATASE 65 U/L (45-117); TOTAL BILIRUBIN ADULT 0.3 MG/DL (0.2-1.0); TOTAL PROTEIN 6.7 GM/DL (6.4-8.2)
[2017-07-28] MEDS: SODIUM CHLOR 0.9% 1000 ML INJ 1,000 ML IV SCH ×2 (07:17→08:25)
[2017-07-28 08:43] VITALS: BP 114/66; PULSE 74; RESP 20; TEMP 98.6; O2SAT 98
[2017-07-28] MEDS ORDERED: SODIUM CHLORIDE 0.9% FLUSH 10 ML FLUSH IV FLUSH SCH (09:00)
[2017-07-28] MEDS ORDERED: DOCUSATE SODIUM 50 MG/SENNA 8.6 MG TAB PO SCH (09:00)
--- NOTE | 2017-07-28 09:19 | HHI.PR ---
Subjective Remarks Is a 31-year-old male patient who reports only medical history is asthma. Patient reports approximately 1 week ago he had a generalized viral illness or he felt general malaise and subjective fevers and chills with nausea but no vomiting. Patient reports he felt better and then on Friday approximately 5 days ago began to have what felt like muscle cramps bilateral upper and lower extremities. Patient's upper extremities got progressively weaker to where on Friday he was unable to put on his child socks or grasp properly therefore he proceeded to the emergency department for further evaluation. At this point patient is resting in bed offers no new concerns or complaints but continues to have weak bilateral hand grasp Objective Vitals Vital Signs Date Time Temp Pulse Resp B/P (MAP) Pulse Ox O2 Delivery O2 Flow Rate FiO2 07/28/17 08:43 98.6 74 20 114/66 (82) 98 07/28/17 04:44 97.8 82 20 114/74 (87) 97 07/27/17 22:49 97.4 88 20 134/92 (106) 98 07/27/17 22:25 07/27/17 19:48 20 07/27/17 19:26 70 18 135/81 (99) 98 Room Air 07/27/17 17:44 98.2 92 18 157/105 (122) 100 Result Diagram: 07/28/17 0602 07/28/17 0602 Other Results Laboratory Tests Test 07/27/17 18:42 07/27/17 18:55 07/27/17 21:04 07/28/17 06:02 White Blood Count 7.7 TH/MM3 5.3 TH/MM3 Red Blood Count 4.98 MIL/MM3 4.80 MIL/MM3 Hemoglobin 14.4 GM/DL 13.6 GM/DL Hematocrit 40.7 % 39.8 % Mean Corpuscular Volume 81.7 FL 82.8 FL Mean Corpuscular Hemoglobin 28.9 PG 28.2 PG Mean Corpuscular Hemoglobin Concent 35.3 % 34.1 % Red Cell Distribution Width 12.9 % 12.8 % Platelet Count 318 TH/MM3 287 TH/MM3 Mean Platelet Volume 6.8 FL 6.7 FL Neutrophils (%) (Auto) 64.3 % 54.6 % Lymphocytes (%) (Auto) 23.9 % 31.3 % Monocytes (%) (Auto) 7.6 % 8.6 % Eosinophils (%) (Auto) 3.7 % 4.8 % Basophils (%) (Auto) 0.5 % 0.7 % Neutrophils # (Auto) 4.9 TH/MM3 2.9 TH/MM3 Lymphocytes # (Auto) 1.8 TH/MM3 1.7 TH/MM3 Monocytes # (Auto) 0.6 TH/MM3 0.5 TH/MM3 Eosinophils # (Auto) 0.3 TH/MM3 0.3 TH/MM3 Basophils # (Auto) 0.0 TH/MM3 0.0 TH/MM3 CBC Comment DIFF FINAL DIFF FINAL Differential Comment Erythrocyte Sedimentation Rate 31 mm/hr Blood Urea Nitrogen 24 MG/DL 20 MG/DL Creatinine 1.13 MG/DL 0.84 MG/DL Random Glucose 78 MG/DL 77 MG/DL Total Protein 7.6 GM/DL 6.7 GM/DL Albumin 3.9 GM/DL 3.6 GM/DL Calcium Level 8.8 MG/DL 8.2 MG/DL Alkaline Phosphatase 78 U/L 65 U/L Aspartate Amino Transf (AST/SGOT) 30 U/L 25 U/L Alanine Aminotransferase (ALT/SGPT) 40 U/L 33 U/L Total Bilirubin 0.3 MG/DL 0.3 MG/DL Sodium Level 139 MEQ/L 142 MEQ/L Potassium Level 3.9 MEQ/L 3.9 MEQ/L Chloride Level 106 MEQ/L 109 MEQ/L Carbon Dioxide Level 22.9 MEQ/L 24.5 MEQ/L Anion Gap 10 MEQ/L 9 MEQ/L Estimat Glomerular Filtration Rate 75 ML/MIN 105 ML/MIN Total Creatine Kinase 235 U/L Troponin I LESS THAN 0.02 NG/ML Urine Color LIGHT-YELLOW Urine Turbidity CLEAR Urine pH 5.5 Urine Specific [place] 1.009 Urine Protein NEG mg/dL Urine Glucose (UA) NEG mg/dL Urine Ketones 10 mg/dL Urine Occult Blood NEG Urine Nitrite NEG Urine Bilirubin NEG Urine Urobilinogen LESS THAN 2.0 MG/DL Urine Leukocyte Esterase NEG Urine WBC LESS THAN 1 /hpf Microscopic Urinalysis Comment CULT NOT INDICATED Prothrombin Time 10.5 SEC Prothromb Time International Ratio 1.0 RATIO Activated Partial Thromboplast Time 30.8 SEC Vitamin B12 Level 458 PG/ML Thyroxine (T4) 8.2 MCG/DL Thyroid Stimulating Hormone 3rd Gen 1.100 uIU/ML Magnesium Level 2.2 MG/DL C-Reactive Protein 1.40 MG/DL Imaging Last [address] 07/27/17 Signed Impressions: CONCLUSION: 1. Negative CT Head non contrast. 2. No evidence of acute infarct, hemorrhage, mass or edema. Chest X-Ray 07/27/17 Signed Impressions: CONCLUSION: Negative examination. Cervical Spine CT 07/27/17 Signed Impressions: CONCLUSION: 1. Negative CT Cervical Spine non contrast. 2. No evidence of disc herniation, spinal stenosis or foraminal encroachment. Objective Remarks GENERAL: This is a well-nourished, well-developed patient 31-year-old male, in no apparent distress. CARDIOVASCULAR: Regular rate and rhythm RESPIRATORY: Clear to auscultation. Breath sounds equal bilaterally. GASTROINTESTINAL: Abdomen soft, non-tender, nondistended. Normal active bowel sounds MUSCULOSKELETAL: Extremities without clubbing, cyanosis, or edema. Weakened bilateral hand grasp 3-4 out of 5 NEURO: Alert & Oriented x4 to person, place, time, situation. Moves all ext x4 A/P Problem List: (1) Muscle ache ICD Codes: M79.1 - Myalgia Status: Acute Plan: ER provider discussed case with Dr. Martino neurology who requested MRI Consult neurology CT the head reviewed and reveals negative CT noncontrast. No evidence of acute infarct, hemorrhage, mass or edema MRI of the brain negative MR brain with and without contrast. No evidence of acute infarct, hemorrhage, mass, enhancing lesions or demyelinization process. CT to cervical spine reviewed and reveals negative CT cervical spine noncontrast no evidence of disc herniation, spinal stenosis or foraminal encroachment. MRI cervical spine reviewed and reveals negative MR cervical spine with and without contrast. No evidence of acute abnormality or enhancing lesions MRI thoracic spine reviewed and reveals no acute bony abnormality, disc herniation, soft tissue mass or spinal cord abnormality. No evidence of enhancing epidural, intradural or intramedullary lesions. MRI lumbar spine reviewed and reveals negative MRI lumbar spine with and without contrast. No evidence of acute abnormality or abnormal incident. Cigarette elevated at 31 C-reactive protein elevated at 1.4 CORNELIA pending B12 458 TSH 1.1 (2) Weakness generalized ICD Codes: R53.1 - Weakness Status: Acute Plan: as above Kristin Dalal July 28, 2017 09:19
[2017-07-28] MEDS ORDERED: DEXAMETHASONE SOD PHOS 20 MG/5 ML VIAL IM ONE (09:45)
[2017-07-28] MEDS ORDERED: FAMOTIDINE 20 MG TAB PO ONE (09:45)
--- NOTE | 2017-07-28 10:04 | OTSOAPIP ---
TIME SESSION COMPLETED: 958 TREATMENT TIME: 8 MINS. CHART REVIEWED. PATIENT ADMITTED WITH GENERAL WEAKNESS, NAUSEA AND FATIGUE, RECEIVED ORDERS FROM DR ANA PATE FOR OCCUPATIONAL THERAPY SERVICES. PATIENT FOUND IN BED WITH SPOUSE PRESENT. BOTH PARITIES WERE EDUCATED ON OCCUPATIONAL THERAPY INTERVENTION. PATIENT ACKNOWLEDGED THE INFORMATION AND POLITELY REFUSED OCCUPATIONAL THERAPY SERVICES STATING THAT HE IS DOING FINE AND WANTS TO GO HOME. SPOUSE ATTEMPTED TO CONVINCE PATIENT HOWEVER PATIENT CONTINUED TO POLITELY REFUSE. PLAN: OCCUPATIONAL THERAPY SIGNING OFF PER PATIENTS REQUEST NO TREATMENT RENDERED. Therapist: AUSTIN RAMACHANDRAN OTR/L Signature on file
--- NOTE | 2017-07-28 10:14 | MB ---
cc: Oni Martino MD DATE: 07/28/2017 HISTORY OF PRESENT ILLNESS: A 31-year-old right-handed man with a history really of no significant past medical history. Friday he had a bit of a sore throat, a temperature to 100.7 and then on Friday, he started to feel achy all over his body and his shoulders and arms and thighs and felt like he was weak where he could not get the toothpaste out of a tube. No numbness or tingling. Thus, came in the hospital last evening. REVIEW OF SYSTEMS: No hypertension, diabetes, hypercholesterolemia, AL, CABG, cardiac arrhythmia, renal, hepatic or pulmonary disease, thyroid disease, lupus, ulcer, cancer, seizure or stroke. No tick bite or rash. He has not been in the [place]. He did have a little bit of neck pain and he has a little bit of a headache, but that is not unusual for him. He has a history of headaches. No diarrhea or cough. ALLERGIES: NO KNOWN DRUG ALLERGIES. MEDICATIONS: Multivitamin. SOCIAL HISTORY: Nonsmoker or drinker. No drugs. Lives with his . FAMILY HISTORY: Positive for cancer. Negative for seizure. Positive stroke. PHYSICAL EXAMINATION: VITAL SIGNS: He is afebrile, 74, 20, 114/66. NECK: There were no carotid bruits. HEART: Regular rhythm. I did not detect a murmur. NEUROLOGIC: Pupils are equal. Visual simon are full. Extraocular movements intact without nystagmus. Face is symmetric with normal sensation. Tongue was midline. There is no drift. He had normal strength in upper and lower extremities bilaterally, including deltoid, triceps, biceps, finger extensors, finger flexors, FDP all the digits. [employer] iliopsoas, hamstring, quad, tibialis interior, toe extensors and flexors, foot inversion, eversion normal strength. He is able to stand on his toes well. FDI ADM, APB all normal strength. DTRs are 1+ and symmetric in the upper extremities, 2+ symmetric at the knees. Toes were downgoing bilaterally. No ankle clonus. Tone was normal throughout. Pinprick and proprioception are intact in all 4 extremities and his back and the occiput bilaterally, and the face also. Speech is fluent. He is not aphasic. No apparent distress. LABORATORY DATA: Sedimentation rate is 31. CBC is normal. CORNELIA is pending. UA was negative except for 10 ketones. Basic metabolic profile was normal. LFTs normal. CPK, troponin normal. CRP elevated at 1.4, albumin 3.6. B12 and thyroid were normal. Coags were normal. He had an MRI of the brain, MRI of the cervical, thoracic and lumbosacral spine with and without all normal. Chest x-ray negative. IMPRESSION: I think his neurological exam is normal. He reports of an inability to get the toothpaste out of the tube. More due to discomfort, not weakness and he agrees with that today. He probably has a viral syndrome. We will check a rheumatoid factor on him and we can try him on just a dose of steroids and he could be discharged after that. He can call the office for followup tomorrow. There is no evidence here for Guillain-Delmar. MD KATHRIN Myers/KESHAV , 09:45 AM , 10:13 AM
[2017-07-28 12:27] VITALS: BP 126/87; PULSE 82; RESP 20; TEMP 98.2; O2SAT 98
[2017-07-28 12:36] LABS: CHOLESTEROL 160 MG/DL (120-200); RHEUMATOID FACTOR SCREEN NEGATIVE (NEGATIVE); TRIGLYCERIDES 152 MG/DL (42-150)
[2017-07-28 12:50] LABS: CHOLESTEROL/ HDL RATIO 5.29 RATIO; HDL CHOLESTEROL 30.2 MG/DL (40.0-60.0); LDL CHOLESTEROL 99 MG/DL (0-99)
[2017-07-28 12:51] LABS: FOLATE GREATER THAN 20.0 NG/ML (3.1-17.5)
--- NOTE | 2017-07-28 15:04 | HHI.DCPOC ---
Discharge Care Plan Diagnosis: (1) Viral syndrome (2) Muscle ache (3) Weakness generalized Goals to Promote Your Health * To prevent worsening of your condition and complications * To maintain your health at the optimal level Directions to Meet Your Goals Take your medications as prescribed Follow your dietary instruction Follow activity as directed Keep your appointments as scheduled Take your immunizations and boosters as scheduled If your symptoms worsen call your PCP, if no PCP go to Urgent Care Center or Emergency Room Smoking is Dangerous to Your Health. Avoid second hand smoke Call the 24-hour hour crisis hotline for domestic abuse at Kristin Dalal July 28, 2017 15:04
--- NOTE | 2017-07-28 15:06 | HHI.DS ---
Discharge Summary Admission Date July 27, 2017 at 21:49 Discharge Date: July 28, 2017 Admitting Diagnosis Generalized weakness (1) Muscle ache ICD Codes: M79.1 - Myalgia Status: Acute (2) Weakness generalized ICD Codes: R53.1 - Weakness Status: Acute Consultants Dr. Martino, Neurology Procedures None Brief History Patient is a 31-year-old male who comes in complaining of weakness and decreased nurses director strength. He says that he felt ill about a week ago with some nausea and fatigue. He did not vomit. He did not have any fevers, but felt warm. He says about 4 days ago, he started to have a lot of muscle pains. He says he feels like he has been working out at the gym, but he has not been. He says that last night, he noticed that his nurses director strength was weak and has been unable to hold things. He denies numbness or tingling. He has never had this before. Severity is mild to moderate. In er work up was unremarkable except for mild elevated sed rate ,neurology was notified and recommend admit for full neurologic work up. CBC/BMP: 07/28/17 0602 07/28/17 0602 Significant Findings Laboratory Tests Test 07/27/17 18:42 07/27/17 18:55 07/27/17 21:04 07/28/17 06:02 Mean Platelet Volume 6.8 FL (7.0-11.0) 6.7 FL (7.0-11.0) Erythrocyte Sedimentation Rate 31 mm/hr (0-15) Blood Urea Nitrogen 24 MG/DL (7-18) 20 MG/DL (7-18) Estimat Glomerular Filtration Rate 75 ML/MIN (>89) Troponin I LESS THAN 0.02 NG/ML Urine Ketones 10 mg/dL (NEG) Activated Partial Thromboplast Time 30.8 SEC (24.3-30.1) Monocytes (%) (Auto) 8.6 % (0.0-8.0) Eosinophils (%) (Auto) 4.8 % (0.0-4.0) Calcium Level 8.2 MG/DL (8.5-10.1) Chloride Level 109 MEQ/L (98-107) C-Reactive Protein 1.40 MG/DL (0.00-0.30) Test 07/28/17 11:50 Total Protein 7.7 GM/DL (6.0-7.6) Triglycerides Level 152 MG/DL (42-150) HDL Cholesterol 30.2 MG/DL (40.0-60.0) Folate GREATER THAN 20.0 NG/ML Imaging Last Impressions Thoracic Spine MRI 07/27/17 Signed Impressions: CONCLUSION: 1. No acute bony abnormality, disc herniation, soft tissue mass or spinal cord abnormality. 2. No evidence of enhancing epidural, intradural or intramedullary lesions. Lumbar Spine MRI 07/27/17 Signed Impressions: CONCLUSION: 1. Negative MR Lumbar Spine with and without contrast. 2. No evidence of acute abnormality or abnormal enhancement. Head CT 07/27/17 Signed Impressions: CONCLUSION: 1. Negative CT Head non contrast. 2. No evidence of acute infarct, hemorrhage, mass or edema. Chest X-Ray 07/27/17 Signed Impressions: CONCLUSION: Negative examination. Cervical Spine MRI 07/27/17 Signed Impressions: CONCLUSION: 1. Negative MR Cervical Spine with and without contrast. 2. No evidence of acute abnormality or enhancing lesions. Cervical Spine CT 07/27/17 Signed Impressions: CONCLUSION: 1. Negative CT Cervical Spine non contrast. 2. No evidence of disc herniation, spinal stenosis or foraminal encroachment. Brain MRI 07/27/17 Signed Impressions: CONCLUSION: 1. Negative MR Brain with and without contrast. 2. No evidence of acute infarct, hemorrhage, mass, enhancing lesions or demyel inating process. PE at Discharge GENERAL: This is a well-nourished, well-developed patient 31-year-old male, in no apparent distress. CARDIOVASCULAR: Regular rate and rhythm RESPIRATORY: Clear to auscultation. Breath sounds equal bilaterally. GASTROINTESTINAL: Abdomen soft, non-tender, nondistended. Normal active bowel sounds MUSCULOSKELETAL: Extremities without clubbing, cyanosis, or edema. Weakened bilateral hand grasp 4 out of 5 NEURO: Alert & Oriented x4 to person, place, time, situation. Moves all ext x4 Hospital Course Muscle ache ER provider discussed case with Dr. Martino neurology who requested MRI Consult neurology CT the head reviewed and reveals negative CT noncontrast. No evidence of acute infarct, hemorrhage, mass or edema MRI of the brain negative MR brain with and without contrast. No evidence of acute infarct, hemorrhage, mass, enhancing lesions or demyelinization process. CT to cervical spine reviewed and reveals negative CT cervical spine noncontrast no evidence of disc herniation, spinal stenosis or foraminal encroachment. MRI cervical spine reviewed and reveals negative MR cervical spine with and without contrast. No evidence of acute abnormality or enhancing lesions MRI thoracic spine reviewed and reveals no acute bony abnormality, disc herniation, soft tissue mass or spinal cord abnormality. No evidence of enhancing epidural, intradural or intramedullary lesions. MRI lumbar spine reviewed and reveals negative MRI lumbar spine with and without contrast. No evidence of acute abnormality or abnormal incident. Cigarette elevated at 31 C-reactive protein elevated at 1.4 CORNELIA pending and RPR pending. Patient to follow up with PCP and neurology [id number] TSH 1.1 - Neurology gave dexamethasone 10 mg IM x 1, patient's symptoms improved. - Neurology cleared for DC stating patient's symptoms likely related to viral syndrome Weakness generalized as above Pt Condition on Discharge: Stable Discharge Disposition: Discharge Home Discharge Instructions DIET: Follow Instructions for: As Tolerated, No Restrictions Activities you can perform: Regular-No Restrictions Follow up Referrals: Neurology - 2 Weeks with Oni Martino MD PCP Follow-up - [address] Rucker Continued Medications: Multivitamin (One-A-Day Essential) 1 Each Tablet 1 TAB PO DAILY Kristin Dalal July 28, 2017 15:06 Javier Burgos MD July 28, 2017 21:53
== END 2017-07-28 15:41 | disposition home or self-care (01) ==
LOC: NEPC 17:42 → NEDA 21:49 → NEPHCDU 22:26
PROVIDERS: ADMIT Hospitalist; ATTEND Hospitalist
DX: M79.1 Myalgia (principal); R53.1 Weakness; R11.0 Nausea; R79.82 Elevated C-reactive protein (CRP); J45.909 Unspecified asthma, uncomplicated; R79.1 Abnormal coagulation profile; R79.89 Other specified abnormal findings of blood chemistry; Z82.3 Family history of stroke
CPT/HCPCS: 70450; 70553; 71045; 72125; 72156; 72157; 72158; 80053; 80061; 81001; 82550; 82607; 82746; 83735; 84165; 84425; 84436; 84443; 84484; 85025; 85610; 85652; 85730; 86038; 86140; 86430; 86592; 93005; 96361; 96374; 96375; 96376; 99285; A9579; G0378; J1100; J1885; J7030